=== PATIENT | female | born 1985 | race Caucasian/White ===

== ENCOUNTER → 2020-10-08 13:32 | Outpatient (BNVA) | payer OTHER, SELFPAY | PROVIDERS: PCP Internal Medicine; Visit Provider Internal Medicine | DX: S71.152A Open bite, left thigh, initial encounter (principal); W54.0XXA Bitten by dog, initial encounter | CPT/HCPCS: 99214 ==

== ENCOUNTER → 2020-10-14 13:55 | Outpatient (BNVA) | payer OTHER, SELFPAY | PROVIDERS: PCP Internal Medicine; Visit Provider Internal Medicine | DX: S71.152A Open bite, left thigh, initial encounter (principal); S61.552A Open bite of left wrist, initial encounter; W54.0XXA Bitten by dog, initial encounter | CPT/HCPCS: 99213 ==

== ENCOUNTER 2023-09-13 09:39 | Outpatient (AMB) | payer OTHER, SELFPAY ==
[2023-09-13 10:50] VITALS: BP 122/80; PULSE 66; TEMP 36.6; O2SAT 97; BMI 31.5
--- NOTE | 2023-09-13 10:50 | MHC.OFFWIV ---
Intake Vital Signs 09/13/23 10:50 Height 5 ft 2 in Weight 172 lb BMI 31.5 BP 122/80 Blood Pressure Location Lt brachial Position Sitting Pulse 66 Pulse Source Pulse Oximeter Temp 97.8 F Temp Source Temporal Artery Scan Pulse Oximetry (%) 97 Oxygen Delivery Method Room Air Intake Visit Reasons: EP, burning with urination, urgency Intake Note: pt is here for c/o burning with urination, urgency Patient Tobacco Use Status: Never used Tobacco Allergies NSAIDS (Non-Steroidal Anti-Inflamma [NSAIDS (NON-STEROIDAL ANTI-INFLAMMA] Allergy (Severe, Verified 09/13/23 10:50) ANAPHYLAXIS propofol [PROPOFOL] Allergy (Severe, Verified 09/13/23 10:50) ANAPHYLAXIS ibuprofen Allergy (Unknown, Verified 09/13/23 10:50) Unknown Do you need a note to return to daycare/school/sports/work: Yes HPI HPI Comments History of Present Illness Details Patient is a 38-year-old female that presents with a sick visit. States that she has had symptoms of burning and pain with urination for the past couple of days. Denies fever, denies CVA tenderness. Denies nausea vomiting diarrhea. Patient had in office lab test which demonstrated positive for urinary tract infection. Patient has no CVA tenderness, some suprapubic pain, burning while urination. This is likely urinary tract infection. This is unlikely to be kidney infection, or have obstructive uropathy. Will prescribe Bactrim to be taken its entirety with Pyridium for symptom relief. Patient has been educated to drink plenty of water and stay hydrated. She has been educated on signs of worsening symptoms and when to return to the walk-in or when to present to the emergency room. Patient is agreeable to this plan. [facility] Patient Tobacco Use Status: Never used Tobacco Review of Systems Const Details: Constitutional : No Weight loss, No Fever, No Chills, No Fatigue, No Malaise Cardiovascular : No Chest Pain, No SOB, No Dyspnea on Exertion, No Orthopnea, No Edema, No Palpitations Respiratory : No Cough, No Sputum, No Wheezing Gastrointestinal : No Nausea, No Vomiting, No Diarrhea, No Constipation, No abdominal Pain, No Hematochezia, No Melena Genitourinary : Admits Dysuria, Admits Urinary Frequency, No Hematuria, Neuro : No Weakness, No Numbness, No Dizziness, No Headache Endocrine : No Polyuria, No Polydipsia All other systems reviewed and are negative Physical Exam Vital Signs: Last Vital Signs Temp 97.8 F 09/13/23 10:50 Pulse 66 09/13/23 10:50 BP 122/80 09/13/23 10:50 Pulse Ox 97 09/13/23 10:50 Oxygen Delivery Method Room Air 09/13/23 10:50 BMI result Body Mass Index 31.5 Vital signs reviewed and are stable Const Other: Appearance: Alert.? Oriented X3.? No acute distress.? CVS: Normal heart rate and rhythm.? Pulses normal.? Abdomen: Suprapibic pain. ? Back: no CVA tenderness bilaterally Neuro: Oriented X 3.? In office lab demonstrated positive for urinary tract infection. Results AMB Urinalysis, Automated UA Leukoctes 500 [place]/uL Last Edit by Markie Nelson CMA on 09/13/23 10:26 UA Nitrite Positive Last Edit by Markie Nelson CMA on 09/13/23 10:26 UA Urobilinogen 8 mg/dL Last Edit by Markie Nelson CMA on 09/13/23 10:26 UA Protein 15 mg/dL Last Edit by Markie Nelson CMA on 09/13/23 10:26 UA pH 5.0 Last Edit by Markie Nelson CMA on 09/13/23 10:26 UA Blood 10 [place]/uL Last Edit by Markie Nelson CMA on 09/13/23 10:26 UA Specific [place] 1.020 Last Edit by Markie Nelson CMA on 09/13/23 10:26 UA Ketone Positive Last Edit by Markie Nelson CMA on 09/13/23 10:26 UA Bilirubin 4 mg/dL Last Edit by Markie Nelson CMA on 09/13/23 10:26 UA Glucose 250 mg/dL Last Edit by Markie Nelson CMA on 09/13/23 10:26 Results Reviewed Results Reviewed: Laboratory Last Values Urine pH (Auto) 5.0 09/13/23 10:25 Specific [place] (Auto) 1.020 09/13/23 10:25 Urine Protein (Auto) 15 mg/dL 09/13/23 10:25 Glucose (UA)(Auto) 250 mg/dL 09/13/23 10:25 Urine Ketones (Auto) Positive 09/13/23 10:25 Urine Blood (Auto) 10 [place]/uL 09/13/23 10:25 Urine Nitrite (Auto) Positive 09/13/23 10:25 Urine Bilirubin (Auto) 4 mg/dL 09/13/23 10:25 Urine Urobilinogen (Auto) 8 mg/dL 09/13/23 10:25 Leukocyte Esterase (Auto) 500 [place]il[place]/uL 09/13/23 10:25 Assessment & Plan Assessment & Plan (1) Urinary tract infection: Code(s): N39.0 - Urinary tract infection, site not specified Qualifiers: Encounter type: initial encounter Plan: Patient will be given Macrobid to be taken in its entirety. Patient will be given Pyridium for symptom relief. Patient has been instructed to stay hydrated and drink plenty of water. Has been educated that medication may turn her urine orange. She has been educated on signs of worsening symptoms and when to present to the walk-in or when to return to the emergency room. Patient is agreeable to this plan Orders: Orders AMB Urinalysis Automated Today Z13.9 - Encounter for screening, unspecified Coding Level of Care Code New Pt Level 3 (53402) Diagnoses Urinary tract infection N39.0 Encounter type: initial encounter Time Spent (min) 15
== END 2023-09-13 11:27 | disposition home or self-care (01) ==
PROVIDERS: PCP Internal Medicine; Visit Provider Nurse Practitioner Primary Care
DX: R39.15 Urgency of urination (principal)
CPT/HCPCS: 81003; 99203

== ENCOUNTER 2025-08-29 15:05 | Outpatient (AMB) | payer MEDICAID, SELFPAY ==
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
[2025-08-29 15:14] VITALS: BP 137/104; PULSE 94; O2SAT 99; BMI 33.7
--- OUTSIDE RECORDS SUMMARY | 2025-08-29 18:11 | XMS_ITS | Data Portability ---
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 Plan of Treatment Reminders Order Date Submit Date Provider Last Modified By Organization Details Last Modified Time Details Appointments None recorded. Lab urinalysis , dipstick 2022 023 [email or web address] _payal davila, [address] [place] [address], [phone], 3 18:59:12 test, urine 2022 023 [email or web address] 2099payal [facility], [address] [place] [address], [phone], 3 18:59:12 culture, urine 2022 023 [email or web address], [address] [place] [address], [place], [address], 3 14:06:53 Referral None recorded. Procedures None recorded. Surgeries None recorded. Imaging None recorded. Medication Orders Macrobid 100 mg capsule 2022 023 [email or web address] [id number], [address] [place], [address], 3 20:02:36 Patient TargetsNo targets recorded. Patient Instructions Encounter Date Encounter Id Patient Instructions Last Modified By Organization Details Last Modified Time 01/16/2023 [id number] Female Urinary Tract Infection (UTI): Care Instructions [email or web address] Not available 01/16/2023 19:03:58 Reason for Referral None Reported. Results Created Date Observation Date Name Description Value Unit Range Abnormal Flag Note LastModifiedBy Organization Detail LastModifiedTime 01/17/2001/21/2023 URINE CULTU RE, ROUTI NE urine culture, routine FINAL REPORT abnormal Not Available [facility] ([facility]) [address], [place], [address], 01/21/2023 12:06:16 01/17/20 23 01/21/2023 URINE CULTU RE, ROUTI NE result 1 ESCHER ICHIA COLI abnormal Cefaz virginia <=4 ug/mL Cefaz virgin[place] with an MARIE <=16 predi cts susce ptibi lity to the oral agent s cefac jose, cefdi brianne, cefpo doxim e, cefpr ozil, cefur oxime , cepha lexin , and lorac arbef when used for thera py of uncom plica helene urina ry tract infec tions due to E. coli, Klebs iella pneum oniae , and Prote us mirab ilis. Multi -Drug Resis tant Organ ism Great er than 100,0 00 colon y formi ng units per mL Not Available [facility] ([facility]) [address], [place], [address], 01/21/2023 12:06:16 01/17/20 23 01/21/2023 URINE CULTU RE, ROUTI NE antimicrobia l susceptibili ty COMMEN T S = Susce ptibl e; I = Inter media te; R = Resis tant P = Posit hayden; N = Negat hayden MICS are expre ssed in micro grams per mL Antib iotic RSLT# 1 RSLT# 2 RSLT# 3 RSLT# 4 Amoxi cilli n/Cla vulan ic Acid S Ampic illin R Cefep sudeep S Ceftr iaxon e S Cefur oxime S Cipro floxa rico R Ertap enem S Genta micin S Imipe nem S Levof loxac in R Merop enem S Nitro furan toin S Piper acill in/Ta zobac dejesus S Tetra cycli ne R Tobra mycin S Trime thopr im/Prasad lfa S Not Available [facility] ([facility]) [address], [place], [address], 01/21/2023 12:06:16 01/17/20 23 01/16/2023 pregn elle test, urine Unknown Analyte Normal = Negati ve Not Available [address], [place], [address], 01/16/2023 18:53:02 01/17/20 23 01/16/2023 pregn elle test, urine Unknown Analyte negati ve Not Available [address] [place] [address], [place], [address], 01/16/2023 18:53:02 01/17/20 23 01/16/2023 urina lysis , dipst ick Unknown Analyte Normal = light yellow Not Available [address] [place] [address], [place], [address], 01/16/2023 18:52:47 01/17/20 23 01/16/2023 urina lysis , dipst ick Unknown Analyte Normal = clear Not Available [address] [place] [address], [place], [address], 01/16/2023 18:52:47 01/17/20 23 01/16/2023 urina lysis , dipst ick Unknown Analyte Normal = negati ve Not Available [address] [place] [address], [place], [address], 01/16/2023 18:52:47 01/17/20 23 01/16/2023 urina lysis , dipst ick Unknown Analyte Normal = Negati ve Not Available [address] [place] [address], [place], [address], 01/16/2023 18:52:47 01/17/20 23 01/16/2023 urina lysis , dipst ick Unknown Analyte Normal = Negati ve Not [facility] [address], [place], [address], 01/16/2023 18:52:47 01/17/2001/16/2023 urina lysis , dipst ick Unknown Analyte Normal = 1.010, 1.015, 1.020 Not Available [address], [place], [address], 01/16/2023 18:52:47 01/17/2001/16/2023 urina lysis , dipst ick Unknown Analyte Normal = Negati ve Not Available [address], [place], [address], 01/16/2023 18:52:47 01/17/20 23 01/16/2023 urina lysis , dipst ick Unknown Analyte Normal = 6.5, 7.0, 7.5, 8.0 Not Available [address] [place] [address], [place], [address], 01/16/2023 18:52:47 01/17/2001/16/2023 urina lysis , dipst ick Unknown Analyte Normal = Negati ve Not Available [address], [place], [address], 01/16/2023 18:52:47 01/17/20 23 01/16/2023 urina lysis , dipst ick Unknown Analyte Normal = 0.2, 1.0 Not Available [address] [place] [address], [place], [address], 01/16/2023 18:52:47 01/17/20 23 01/16/2023 urina lysis , dipst ick Unknown Analyte Normal = Negati ve Not Available jeromy mackenzie [address], [place], [address], 01/16/2023 18:52:47 01/17/20 23 01/16/2023 urina lysis , dipst ick Unknown Analyte Normal = Negati ve Not Available jeromy mackenzie [address], [place], [address], 01/16/2023 18:52:47 01/17/20 23 01/16/2023 urina lysis , dipst ick Unknown Analyte Dark Yellow Not Available jeromy mackenzie [address], [place], [place], [address], 01/16/2023 18:52:47 01/17/2001/16/2023 urina lysis , dipst ick Unknown Analyte Slight ly Cloudy Not Available jeromy mackenzie [address], [place], [address], 01/16/2023 18:52:47 01/17/20 23 01/16/2023 urina lysis , dipst ick Unknown Analyte Negati ve Not Available jeromy mackenzie [address], [place], [address], 01/16/2023 18:52:47 01/17/20 23 01/16/2023 urina lysis , dipst ick Unknown Analyte Negati ve Not Available jeromy mackenzie [address], [place], [address], 01/16/2023 18:52:47 01/17/20 23 01/16/2023 urina lysis , dipst ick Unknown Analyte Negati ve Not Available jeromy mackenzie [address], [place], [address], 01/16/2023 18:52:47 01/17/20 23 01/16/2023 urina lysis , dipst ick Unknown Analyte 1.025 Not Available [address], [place], [address], 01/16/2023 18:52:47 01/17/20 23 01/16/2023 urina lysis , dipst ick Unknown Analyte Trace- intact Not Available jeromy [address], [place], [address], 01/16/2023 18:52:47 01/17/20 23 01/16/2023 urina lysis , dipst ick Unknown Analyte 5.5 Not Available [address], [place], [address], 01/16/2023 18:52:47 01/17/20 23 01/16/2023 urina lysis , dipst ick Unknown Analyte Negati ve Not Available [address], [place], [address], 01/16/2023 18:52:47 01/17/20 23 01/16/2023 urina lysis , dipst ick Unknown Analyte 0.2 E.U./d L Not Available [address], [place], [address], 01/16/2023 18:52:47 01/17/20 23 01/16/2023 urina lysis , dipst ick Unknown Analyte Positi ve Not Available [address], [place], [place], [address], 01/16/2023 18:52:47 01/17/20 23 01/16/2023 urina lysis , dipst ick Unknown Analyte Small Not Available [address], [place], [address], 01/16/2023 18:52:47 Result Notes None recorded. Procedures Surgical History Date Name Laterality Status Provider Name and Address Organization Details Recorded Time neurostimulation procedure completed ADE HANC[place]AU [place] - [facility] 01/16/2023 18:35:33 Imaging Results None recorded. Procedure Notes None recorded. Medical Equipment None Reported. Allergies Allergen ID Allergen Name Allergen Category Reaction Reaction Severity Criticality Documentation Date Start Date Code Code System Note Provider Name and Address Organization Details Recorded Time 620831 Non-stero idal anti-infl ammatory agent (substanc e) medicatio n anaphylax is Not available Not available 01/16/2023 71174 5008 SNOMED ADE GARIBAY null, [place] - [facility] 18:33:36 212583 propofol medicatio n anaphylax is Not available Not available 01/16/2023 8782 RxNorm ADE HANCOCKAU philip, [place] - [facility] 18:34:29 Medications Name Sig Start Date Stop Date Status Note LastModified by Organization Details LastModified Time hydrocodone 7.5 mg-acetamin ophen 325 mg tablet TAKE 1 TABLET BY MOUTH 3 TIMES A DAY NEEDED FOR 5 DAYS 01/16 completed Not Available Not Available Not Available cephalexin 500 mg capsule 1 po bid x 7 d take with food 2022 active Not Available Not Available Not Avai lable epinephrine 0.3 mg/0.3 mL injection, auto-inject or INJECT 0.3 ML DIRECTED NEEDED (ALLERGIC REACTION) . active Not Available Not Available No t Available nitrofurant oin monohydrate /macrocryst als 100 mg capsule TAKE 1 CAPSULE BY MOUTH EVERY 12 HOURS WITH MEALS FOR 7 DAYS 2022 active Not Available Not Available Not Avai lable ProAir HFA 90 mcg/actuati on aerosol inhaler INHALE 2 PUFFS INTO THE LUNGS EVERY 4 HOURS NEEDED FOR COUGH OR WHEEZING. 01/16 completed Not Available Not Available Not Available Spiriva Respimat 2.5 mcg/actuati on solution for inhalation INHALE 2 PUFFS INTO THE LUNGS DAILY 01/16 completed Not Available Not Available Not Available Vitals Date Recorded Oxygen saturation Oxygen saturation in Arterial blood by Pulse oximetry Heart rate Respiratory rate Body temperature Body height Body mass index (BMI) Body weight Pain severity - 0-10 verbal numeric rating [Score] - Reported Systolic And Diastolic Systolic And Diastolic Provider Name and Address Organization Details Last Updated DateTime 99 % 99 % 80 /min 16 /min 98.6 [degF] 157.48 cm 29.4 kg/m2 74620.3 7 g 4 131/93 mm[Hg] 130/82 mm[Hg] ADE HANCOCKAU [facility] 18:56:47 Social History Question Answer Notes LastModified by [employer] Details LastModified Time Tobacco Smoking Status Never Smoker ADE PHOENIXTAYLOR palacios [place] - [facility] 01/16/2023 18:33:25 How Much Tobacco Do You Smoke? No Information not available 01/16/2023 Have You Recently Traveled Abroad? No Information not available 01/16/2023 Sex: Unknown Functional Status Question Answer Note LastModified by [employer] Details LastModified Time Do you use any illicit or recreational drugs? No Information not available 01/16/2023 Are you currently employed? Yes Information not available 01/16/2023 Mental Status None recorded. Family History Relationship Description Onset Age of this Age Resolved Age Notes LastModified by Organization Details LastModified Time Father No current problems or disability Not available 01/16 18:37:32 Mother No current problems or disability Not available 01/16 18:37:32 Medical History No medical history recorded. Gynecological History Statement/Question Response Date of LMP 01/14/2023 Obstetrics History GPAL:G 0 P 0 0 0 0 Past Encounters Encounter ID Performer Location Encounter Start Date Encounter Closed Date Diagnosis/Indication Diagnosis SNOMED-CT Code Diagnosis ICD10 Code Diagnosis IMO Codes Diagnosis Note [id number] [facility] [address] [place] [address] 08/13/2020 12:09:28 08/13/2020 14:02:58 [id number] Lukasz Torres DO [facility] [address] [place] [address] 01/16/2023 18:17:38 01/16/2023 19:29:03 Acute urinary tract infection 104579723 N39.0 Signs and Symptoms c/w UTIUA c/w UTIRx Antibiotic Take your antibiotic with food. Eat a yogurt daily or take a probiotic while you are taking the antibiotic . recommend push fluids, water, cranberry juiceavoid holding urinepract ice postcoital urination UCx pending - reviewed pt phone # and will call prn need to change ABx depending on UCX result Patient advised to follow up as needed for worsening symptoms or no improvemen t. Discussed concerning red flags with patient and reasons to follow up in the Emergency Department urgently. Health Concerns Section Related Observation LastModified by Organization Detai ls LastModified Time None Recorded Concern Status LastModified by Organization Details LastModified Time None Recorded Advance Directives Directive None Recorded Payers Insurance Date Sequence Insurance Name Policy Number Policy Sargent Covered Member ID Sargent Member ID Guarantor Name 01/16/2023 1 [facility] - [facility] (MEDICAID REPLACEMENT - HMO) [facility] Priya Alexander [id number] Priya Munoz Notes Date Note Type Note Provider Name and Address Organization Details Recorded Time 01/16/2023 text/html Urinary Complain t FemaleReported by [email or web address] yo femalec/o dysuria x 3 dno increased frequencyno increased urgencyno incontinenceno pressureno malodorno blood in her urineno back painno rashno feverno nausea or vomitingno MS changeno VB or d/cROS as noted in the HPI Lukasz Torres, [address] [place], [address], [place] - [facility] 01/16/2023 19:04:38 OBGyn Episode No OBEpisode recorded.
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
--- OUTSIDE RECORDS SUMMARY | 2025-08-29 18:11 | XMS_ITS | Encounter Summary ---
Author Organization [facility] Address [address] [place] [address] Care Team Providers Care General Forecaster Name Role Phone Sean Gonzales MD Primary Care Provider [phone] Encounter Details Date Type Department Care Team (Late st Contact Info) Description 08/14/2025 Results Follow-Up Adult Medicine [facility] [address] [place] [phone] Daisy Forde BLOW MOLDING MACHINE OPERATOR [address] [place] [address] Social History Tobacco Use Types Packs/Day Years [...] Record ed Within the last 3 months, marcie w many times did you visit the [...] for your loved ones. For example, child neurologist or elderly care for an older adult? [...] PM EDT Sexual Orientation Not on file documented as of this encounter Ordered Prescriptions Prescription Sig Dispense Quantity Refills Last Filled Start Date End Date ergocalciferol (VITAMIN D-2) 1,250 mcg (50,000 unit) capsule Take 1 capsule (50,000 Units total) by mouth 1 (one) time per week. 12 capsule 08/14/2025 documented in this encounter Plan of Treatment Upcoming Encounters Date Type Department Care Team (Late st Contact Info) Description 09/23/2025 9:30 AM EST Consult Bariatric Surgery - [place] [address] [place] [phone] Lyndsay Campos MD [address] [place] [address] 03/11/2026 9:00 AM EDT Office Visit Adult Medicine [facility] [address] [place] [address] Sean Gonzales MD [address] [place] [address] Scheduled Orders Name Type Priority Associated Diagnoses Orde r Schedule Vitamin D 25 hydroxy Lab Routine Vitamin D deficiency Expected: 11/14/2025, Expires: 08/14/2026 documented as of this encounter Visit Diagnoses Diagnosis Vitamin D deficiency- Primary documented in this encounter Additional Health Concerns Assessment Noted Time PHQ-9 Depression Total Score: 14 025 3:15 PM EDT documented as of this encounter Care Teams General Forecaster Relationship Specialty Start Date End Date Sean Gonzales MD [address] [place] [address] PCP - General Internal Medicine 07/25/25 documented as of this encounter
--- OUTSIDE RECORDS SUMMARY | 2025-08-29 18:12 | XMS_ITS ---
Author Name [facility] Organization Unknown Care Team Organization Name Specialty Phone Email Start Date End Da te [facility] LYSSA JOHNSON Primary Care 02/28/2023 4 [facility] ISH LAYTON Primary Care 08/31/2022 06/11/20 24
== END 2025-08-29 15:41 | disposition home or self-care (01) ==
LOC: HO.PMC 15:06
PROVIDERS: PCP Internal Medicine; Referring Provider Nurse Practitioner Family; Visit Provider Nurse Practitioner Family
DX: M62.838 Other muscle spasm (principal); M79.641 Pain in right hand; M79.642 Pain in left hand; M96.1 Postlaminectomy syndrome, not elsewhere classified; M54.2 Cervicalgia; M54.50 Low back pain, unspecified; G89.29 Other chronic pain; Z96.89 Presence of other specified functional implants
CPT/HCPCS: 99204

== ENCOUNTER → 2025-08-29 15:05 | Outpatient (BNVA) | payer MEDICAID, SELFPAY | PROVIDERS: PCP Internal Medicine; Referring Provider Nurse Practitioner Family; Visit Provider Nurse Practitioner Family | DX: M79.641 Pain in right hand (principal); M79.642 Pain in left hand; M62.838 Other muscle spasm; M96.1 Postlaminectomy syndrome, not elsewhere classified; M54.2 Cervicalgia; M54.50 Low back pain, unspecified; G89.29 Other chronic pain; Z96.89 Presence of other specified functional implants | CPT/HCPCS: 99212 ==